=== PATIENT | male | born 1975 | race Caucasian/White ===

== ENCOUNTER 2022-11-11 23:20 | Emergency (ER) | payer OTHER, SELFPAY | END 2022-11-12 00:09 | disposition left against medical advice (07) | PROVIDERS: Emergency Provider Emergency Medicine | DX: F10.988 Alcohol use, unspecified with other alcohol-induced disorder (principal) ==

== ENCOUNTER 2022-11-12 07:39 | Emergency (ER) | payer OTHER, SELFPAY ==
[2022-11-12 07:59] VITALS: BP 149/94; PULSE 87; RESP 18; TEMP 36.8; O2SAT 97; BMI 21.7
--- NOTE | 2022-11-12 08:03 | PC.NURSE ---
Pt denies SI or HI at this time
--- NOTE | 2022-11-12 09:20 | ED_ITS ---
HPI - Alcohol General Chief Complaint: ETOH/Substance Use Stated Complaint: detox Time Seen by Provider: 11/12/22 08:53 Source: patient Mode of arrival: ambulatory Limitations: no limitations History of Present Illness HPI narrative: 47 yo male healthy here with complaints of seeking detox for alcohol, crack cocaine. Patient reports over the last year increase in usage of both. patient reports he drinks 15 beers daily. Last drink was yesterday. Patient also smokes crack cocaine daily. Does use marijuana as well. No additional substance use. Has never been a detox before. Did do intake with [facility] on Monday and had a bed for but patient reports that he fell asleep and missed going in. He reports he has been on a binge for the last 5 days. not really interested in going to any other detox beds but [facility]. No suicidal or homicidal ideations. No physical complaints Related Data Allergies Allergy/AdvReac Type Severity Reaction Status Date / Time bee pollen [bee stings] Allergy Swelling Verified 11/12/22 08:02 oxycodone Allergy Hives Verified 11/12/22 08:02 Review of Systems Review of Systems: Yes all other systems are reviewed and are negative Constitutional: Constitutional: Reports no additional constitutional complaints, Denies body ache(s), Denies chills, Denies fever(s), Denies headache(s) and Denies weakness Eyes: Eyes: Reports no additional eye complaints and Denies change in vision ENT: Reports system reviewed and no additional complaints, except as documented, Denies dizziness, Denies headache(s), Denies nasal congestion, Denies nasal discharge and Denies neck pain Cardiovascular: Cardiovascular: Reports no additional cardiovascular complaints, Denies chest pain, Denies leg edema and Denies dyspnea Respiratory: Respiratory: Reports no additional respiratory complaints, Denies cough and Denies dyspnea Gastrointestinal: Gastrointestinal: Reports no additional gastrointestinal complaints, Denies abdominal pain, Denies diarrhea, Denies nausea and Denies vomiting Genitourinary: Genitourinary: Denies urinary incontinence Musculoskeletal: Musculoskeletal: Reports no additional musculoskeletal complaints, Denies back pain, Denies arthralgias, Denies joint swelling, Denies neck pain, Denies numbness and Denies tingling Integumentary/Breasts: Skin/Breast: Reports system reviewed and no additional complaints, except as docu and Denies rash Neurologic: Reports system reviewed and no additional complaints, except as documented, Denies dizziness, Denies headache(s), Denies numbness, Denies tingling and Denies weakness PMF Past Medical History Attestation statement: The following information was validated with the patient. Source: old records reviewed and nursing notes reviewed Social History Social History Advance Directives: No Advance Directives Information Provided: No Physical Exam ED Vital Signs: Vital Signs - 24 hr 11/12/22 07:59 11/12/22 15:48 Temperature 98.2 F 98.1 F Pulse Rate 87 111 H Respiratory Rate 18 16 Blood Pressure 149/94 H 146/95 H Pulse Oximetry 97 98 Oxygen Delivery Method Room Air Room Air BMI result Body Mass Index 21.7 Const General: cooperative, healthy appearing, comfortable and no acute distress Orientation/consciousness: patient oriented x3 Limitations: no limitations HENMT Head: Yes normal to inspection Ears: hearing grossly normal bilaterally Eyes General: appearance normal, both eyes and all related structures Neck Neck: Yes normal visual inspection Chest Chest palpation & inspection: normal inspection of the chest Resp Effort & Inspection: normal respiratory effort Cardio Peripheral pulses: Peripheral pulses 2+ throughout GI Inspection: Yes normal to inspection Back/Spine/Pelvis Thoracic/Lumbar Spine: thoracic and lumbar spine normal to inspection Skin General skin exam: no rashes or lesions noted Neuro General: patient oriented x3 and moves all extremities Cognition (Neuro): normal cognition Gait exam (Neuro): Normal gait present Extrem General: Yes normal to inspection Course Course Course Narrative: patient has a detox bed at [facility]. Patient to be transported there via left Medical Decision Making Medical Decision Making [facility] Narrative: 47 yo male here seeking detox for alcohol and cocaine. No physical complaints. No SI. Will obtain labs, drug screen, COVID screen and girls swimming coach consultation Differential Diagnosis Differential Diagnoses: The differential diagnosis associated with the presentation includes Lab Data [facility] Lab Attestation statement: I reviewed the patient's lab results. 11/12/22 09:19 11/12/22 09:19 Labs: Lab Results 11/12/22 11/12/22 11/12/22 Range/Units 09:19 09:19 09:19 WBC 6.8 (4.8-10.8) X10*3/uL RBC 4.90 (4.60-5.80) X10*6/uL Hgb 14.2 (14.0-18.0) g/dl Hct 43.7 (42.0-52.0) % MCV 89.2 (80.0-98.0) fL MCH 29.0 (27.0-33.0) pg MCHC 32.5 (31.0-36.0) g/dl RDW 13.0 (11.0-16.0) % Plt Count 178 (160-400) X10*3/uL MPV 10.2 (9.4-12.4) fL Immature Gran % (Auto) 0.1 (0.0-0.4) % Neut % (Auto) 64.6 (45-73) % Lymph % (Auto) 25.0 (20-40) % [place] % (Auto) 8.6 (2-11) % Eos % (Auto) 1.0 (0-4) % Baso % (Auto) 0.7 (0-2) % Lymph # (Auto) 1.7 (1.2-4.9) X10*3/uL [place] # (Auto) 0.6 (0.1-1.2) X10*3/uL Eos # (Auto) 0.1 (0.0-0.4) X10*3/uL Baso # (Auto) 0.1 (0.0-0.2) X10*3/uL Abs Immat Gran (auto) 0.01 (0.00-0.03) X10*3/uL Absolute Neuts (auto) 4.4 (2.0-8.3) x10*3/uL Absolute Nucleated RBC 0.000 (0.0-0.012) X10*3/uL Nucleated RBC % (auto) 0.0 (0.0-0.2) /100WBC Sodium 140 (135-145) mmol/L Potassium 3.6 (3.3-5.1) mmol/L Chloride 104 (96-108) mmol/L Carbon Dioxide 26 (22-29) mmol/L Anion Gap 14 (12-20) BUN 20 H (9-16) mg/dL Creatinine 0.99 (0.5-1.4) mg/dL Estim Creat Clear Calc 97.6 Estimated GFR > 60 Random Glucose 129 H (60-115) mg/dL Calcium 8.9 (8.4-10.2) mg/dL Urine Opiates Screen (Not Detect) Urine Fentanyl Screen (Not Detect) Ur Barbiturates Screen (Not Detect) Ur Phencyclidine Scrn (Not Detect) Ur Amphetamines Screen (Not Detect) U Benzodiazepines Scrn (Not Detect) Urine Cocaine Screen (Not Detect) U Marijuana (THC) Screen (Not Detect) Ethyl Alcohol < 10 mg/dL COVID-19 (ISAC) Negative (Negative) COVID-19 Clin Com See Note 11/12/22 Range/Units 11:50 WBC (4.8-10.8) X10*3/uL RBC (4.60-5.80) X10*6/uL Hgb (14.0-18.0) g/dl Hct (42.0-52.0) % MCV (80.0-98.0) fL MCH (27.0-33.0) pg MCHC (31.0-36.0) g/dl RDW (11.0-16.0) % Plt Count (160-400) X10*3/uL MPV (9.4-12.4) fL Immature Gran % (Auto) (0.0-0.4) % Neut % (Auto) (45-73) % Lymph % (Auto) (20-40) % [place] % (Auto) (2-11) % Eos % (Auto) (0-4) % Baso % (Auto) (0-2) % Lymph # (Auto) (1.2-4.9) X10*3/uL [place] # (Auto) (0.1-1.2) X10*3/uL Eos # (Auto) (0.0-0.4) X10*3/uL Baso # (Auto) (0.0-0.2) X10*3/uL Abs Immat Gran (auto) (0.00-0.03) X10*3/uL Absolute Neuts (auto) (2.0-8.3) x10*3/uL Absolute Nucleated RBC (0.0-0.012) X10*3/uL Nucleated RBC % (auto) (0.0-0.2) /100WBC Sodium (135-145) mmol/L Potassium (3.3-5.1) mmol/L Chloride (96-108) mmol/L Carbon Dioxide (22-29) mmol/L Anion Gap (12-20) BUN (9-16) mg/dL Creatinine (0.5-1.4) mg/dL Estim Creat Clear Calc Estimated GFR Random Glucose (60-115) mg/dL Calcium (8.4-10.2) mg/dL Urine Opiates Screen Not Detected (Not Detect) Urine Fentanyl Screen Not Detected (Not Detect) Ur Barbiturates Screen Not Detected (Not Detect) Ur Phencyclidine Scrn Not Detected (Not Detect) Ur Amphetamines Screen Not Detected (Not Detect) U Benzodiazepines Scrn Not Detected (Not Detect) Urine Cocaine Screen POSITIVE H (Not Detect) U Marijuana (THC) Screen Not Detected (Not Detect) Ethyl Alcohol mg/dL COVID-19 (ISAC) (Negative) COVID-19 Clin Com Medications Administered Discontinued Medications Generic Name Dose Route Start Last Admin Trade Name Lia PRN Reason Stop Dose Admin Lorazepam 1 mg 11/12/22 11:11 11/12/22 11:15 Lorazepam 1 Mg Tablet PO 11/12/22 11:12 1 mg ONCE ONE Administration Lorazepam 1 mg 11/12/22 11:55 11/12/22 12:16 Lorazepam 1 Mg Tablet PO 11/12/22 11:56 1 mg ONCE ONE Administration Nicotine 21 mg 11/12/22 13:41 11/12/22 14:08 Nicotine 21 Mg Patch.[id number] TRANSDERMA 11/12/22 13:42 21 mg ONCE ONE Administration Discharge Plan Discharge Clinical Impression: Alcohol use disorder, Cocaine abuse Patient Disposition: Home, Self-Care Instructions: Cocaine Abuse (ED), Alcohol Use Disorder (ED) Additional Instructions: go directly to [facility]
[2022-11-12 09:25] LABS: Basophils Absolute Auto 0.1 X10*3/uL (0.0-0.2); Basophils Percent Auto 0.7 % (0-2); Eosinophils Absolute Auto 0.1 X10*3/uL (0.0-0.4); Hematocrit 43.7 % (42.0-52.0); Hemoglobin 14.2 g/dl (14.0-18.0); Imm Gran Abs Auto 0.01 X10*3/uL (0.00-0.03); Imm Gran Pct Auto 0.1 % (0.0-0.4); Lymphocytes Absolute Auto 1.7 X10*3/uL (1.2-4.9); MANUAL DIFF FLAG NO; Mean Corpuscular HGB Conc 32.5 g/dl (31.0-36.0); Mean Corpuscular Volume 89.2 fL (80.0-98.0); Mean Platelet Volume 10.2 fL (9.4-12.4); Monocytes Absolute Auto 0.6 X10*3/uL (0.1-1.2); Monocytes Percent Auto 8.6 % (2-11); Neutrophils Absolute Auto 4.4 x10*3/uL (2.0-8.3); Neutrophils Percent Auto 64.6 % (45-73); Platelet Count 178 X10*3/uL (160-400); White Blood Count 6.8 X10*3/uL (4.8-10.8)
--- NOTE | 2022-11-12 09:30 | MHC.RECOVRN ---
This administrative underwriter met w/ patient, patient alert, oriented, sitting up in recliner. Patient reports ETOH, FRITZ/CRACK use. Patient states had intake with [facility], is waiting for male detox bed opening. Patient reports is not interested in other detox referrals at this time. Patient reports anxiety, no other withdrawal s/s at this time. Discussed recovery resources, patient agreeable to review resources.
[2022-11-12 09:40] LABS: COVID-19 Test Negative (Negative); IDNOW Serial# 6674DD1D
[2022-11-12 09:42] LABS: Anion Gap 14 (12-20); Blood Urea Nitrogen 20 mg/dL (9-16); Calcium 8.9 mg/dL (8.4-10.2); Carbon Dioxide 26 mmol/L (22-29); Chloride 104 mmol/L (96-108); Creatinine Clr Calc Pharmacy 97.6; Estimated Glomerular Filt Rate > 60; Ethanol < 10 mg/dL; Glucose Random 129 mg/dL (60-115); Potassium 3.6 mmol/L (3.3-5.1); Sodium 140 mmol/L (135-145)
--- NOTE | 2022-11-12 10:17 | MHC.RECOVRN ---
This documentation writer met w/ patient, patient alert, oriented, sitting in recliner. This documentation writer and patient reviewed that [facility] confirmed no detox beds open today. Patient and this documentation writer discussed detox options, patient agreeable to Detox referrals being placed in [facility]. Patient reports Crack/FRITZ use and ETOH use for past 1.5 years, last use [employer]. Patient reports anxiety currently, no other withdrawal s/s. Patient states for past 6 months smokes daily, $1,000 worth of CRACK/FRITZ used weekly. Patient reports drinking cans of beer daily for past 6 months. This documentation writer to start ATS bedsearch process.
[2022-11-12] MEDS: LORazepam 1 MG TABLET PO ×2 (11:15→12:16)
[2022-11-12 12:09] LABS: Amphetamine Screen Urine Not Detected (Not Detect); Barbiturates, Urine Not Detected (Not Detect); Benzodiazepines Screen Urine Not Detected (Not Detect); Cannabinoid Screen Urine Not Detected (Not Detect); Cocaine Screen Urine POSITIVE (Not Detect); Fentanyl, urine Not Detected (Not Detect); Opiate Screen Urine Not Detected (Not Detect); Phencyclidine Screen Urine Not Detected (Not Detect)
[2022-11-12] MEDS: Nicotine 21 MG PATCH.TD24 TRANSDERMA (14:08)
[2022-11-12 15:48] VITALS: BP 146/95; PULSE 111; RESP 16; TEMP 36.7; O2SAT 98
--- NOTE | 2022-11-12 16:00 | PC.NURSE ---
info faxed to [facility] intake dept, Jaclyn fax: [phone], call placed to verify info was sent in 2 batches
--- NOTE | 2022-11-12 16:45 | MHC.RECOVSUP ---
? Reason for consult:Recovery Support o Current location: ?[facility] o Identified substance use concern:Substance Use Disorder - Seeking ATS (detox) - Support ? ?Intervention: o ATS bed search started/completed/in process ? Additional information:?I was able to have a case consultation with Em on the Recovery Team. Pt completed intake with [facility] and has been approved for detox. I connected this patient with a Lift to [facility] for a 4:45pm reservation, accompanied him to the vehicle outside the ER and wished him well on his journey.
== END 2022-11-12 16:45 | disposition home or self-care (01) ==
PROVIDERS: Nurse Practitioner Family; Emergency Provider Student in an Organized Health Care Education/Training Program; PCP Internal Medicine
DX: F10.99 Alcohol use, unspecified with unspecified alcohol-induced disorder (principal); F41.9 Anxiety disorder, unspecified; Y90.0 Blood alcohol level of less than 20 mg/100 ml; F14.10 Cocaine abuse, uncomplicated; Z20.822 Contact with and (suspected) exposure to COVID-19
CPT/HCPCS: 36415; 80048; 80307; 82077; 85025; 87635; 99284